=== PATIENT | male | born 1990 | race Caucasian/White ===

== ENCOUNTER → 2017-01-17 | Outpatient (CLI) | payer OTHER ==
[~2017-01-17] MED LIST: ACCUTANE10 MG; FOCALIN XR10 MG; NOHOMEMEDICATIONS; NORCO 5-325 TA1 EACH PO; PROAIR HFA8.5 GM IH; TRAMADOL 50 MG50 MG PO
== END ==
LOC: NUC 09:35
DX: R10.9 Unspecified abdominal pain (principal)